=== PATIENT | male | born 1980 | race Caucasian/White ===

== ENCOUNTER 2020-02-24 10:12 | Emergency (ER) | payer SELFPAY ==
[2020-02-24 10:16] VITALS: BP 112/76; PULSE 100; TEMP 98.7; BMI 27.3
--- NOTE | 2020-02-24 11:05 | PDOC ---
History of Present Illness - General Stated Complaint: INJURY Time Seen by Provider: 02/24/20 10:40 History Source: Patient Exam Limitations: No Limitations - History of Present Illness Initial Comments: 02/24/20 10:50 HISTORY OF PRESENT ILLNESS: 39-year-old male denies medical history presents emergency department for evaluation of laceration to the left index finger which occurred while at work today. 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 Patient is right-hand dominant. Patient reports this happens to him frequently given his profession and had a tetanus shot approximately 1 year ago for similar injury. No recent travel or sick contacts. PAST MEDICAL HISTORY: Denies past medical history SURGICAL HISTORY: Denies ALLERGIES: Peanuts REVIEW OF SYSTEMS General/Constitutional: Denies fever or chills. Denies weakness, weight change. HEENT: Denies change in vision. Denies ear pain or discharge. Denies sore throat. Cardiovascular: Denies chest pain or shortness of breath. Respiratory: Denies cough, wheezing, or hemoptysis. Gastrointestinal: Denies nausea, vomiting, diarrhea or constipation. Denies rectal bleeding. Genitourinary: Denies dysuria, frequency, or change in urination. Musculoskeletal: Denies joint or muscle swelling or pain. Denies neck or back pain. Skin and breasts: See HPI Neurologic: Denies headache, vertigo, loss of consciousness, or loss of sensation. Psychiatric: Denies depression or anxiety. Endocrine: Denies increased thirst. Denies abnormal weight change. Hematologic/Lymphatic: Denies anemia, easy bleeding, or history of blood clots. Allergic/Immunologic: Denies hives or skin allergy. Denies latex allergy. PHYSICAL EXAM General Appearance: Well-appearing, appropriately dressed. No apparent distress, no intoxication. Musculoskeletal/Extremities: Normal inspection. FROM of all extremities, normal capillary refill. Pelvis Stable. No CVA tenderness. No tenderness to extre mities, pedal edema, swelling, erythema or deformity. Neurovascularly intact. Integumentary: Approximate 2 cm flap laceration present to the medial volar aspect of the left index finger over the distal phalanx. Hemostasis achieved prior to arrival. Past History - Medical History Allergies/Adverse Reactions: Allergies Allergy/AdvReac Type Severity Reaction Status Date / Time peanut Allergy Severe Verified 08/07/20 10:17 Home Medications: Ambulatory Orders Bupropion HCl [Wellbutrin Sr] 300 mg PO DAILY 02/24/20 Ibuprofen [Motrin -] 600 mg PO TID #21 tablet 02/24/20 Ibuprofen [Motrin -] 800 mg PO PRN 02/24/20 Quetiapine Fumarate "Xr" [Seroquel Xr -] 150 mg PO DAILY 02/24/20 - Psycho-Social/Smoking History Smoking History: Current every day smoker Have you smoked in the past 12 months: Yes Number of Cigarettes Smoked Daily: 6 Information on smoking cessation initiated: Yes - Substance Abuse Hx (Audit-C & DAST Scrn) How often the patient has a drink containing alcohol: Never Score: In Men: 4 or > Positive; In Women: 3 or > Positive: 0 Screen Result (Pos requires Nsg. Audit-10AR): Negative In the last yr the pt used illegal drug/Rx for NonMed reason: No Score: Yes response is considered Positive: 0 Screen Result (Positive result requires Nsg. DAST-10): Negative *Physical Exam - Vital Signs Last Vital Signs Temp Pulse Resp BP Pulse Ox 98.7 F 100 H 20 112/76 96 02/24/20 10:12 02/24/20 10:12 02/24/20 10:12 02/24/20 10:12 02/24/20 10:12 Procedures - Consent Consent obtained: Verbal, From Patient - Laceration/Wound Repair Left Volar Finger 2nd digit Wound Length: to 2.5 cm Wound Explored: clean Wound's Depth, Shape: superficial, flap Irrigated w/ Saline: Yes Betadine Prep: Yes Anesthesia: 2% Lidocaine Amount of Anesthetic (ccs): 4 Wound Debrided: minimal Wound Repaired With: Sutures Suture Size/Type: 5:0, nylon Number of Sutures: 5 Layer Closure: No Sterile Dressing Applied: Yes Splint Applied: No Sling Applied: No Progress: 02/24/20 11:06 Patient tolerated well Medical Decision Making - Medical Decision Making 02/24/20 10:51 A/P: 39-year-old male with laceration to left index finger sustained immediately prior to arrival Approximate 2 cm flap laceration present over the distal phalanx of the left index finger. Finger extends from the medial aspect over the volar aspect of the left index finger. Nailbed involvement is not noted. Neurovascularly intact. Laceration repair-see procedure note for details Discharge home Discharge - Discharge Information Problems reviewed: Yes Clinical Impression/Diagnosis: Finger laceration Qualifiers: Encounter type: initial encounter Finger: index finger Damage to nail status: without damage Foreign body presence: without foreign body Laterality: left Qualified Code(s): S61.211A - Laceration without foreign body of left index finger without damage to nail, initial encounter Condition: Stable Disposition: HOME - Admission No - Additional Discharge Information Prescriptions: Ibuprofen [Motrin -] 600 mg PO TID #21 tablet - Follow up/Referral Referrals: Adriana Amato MD [Primary Care Provider] - - Patient Discharge Instructions Additional Instructions: Keep wound clean and dry Avoid strenuous activity/exercise to create a hot or sweaty environment until sutures are removed Reapply bacitracin ointment 2 times a day until sutures are removed Return to emergency Department or private physician in 7-10 days for suture removal May use Tylenol or Motrin for pain relief Return immediately to emergency department for redness, swelling, pain, or signs of infection - Post Discharge Activity
== END 2020-02-24 11:10 | disposition home or self-care (01) ==
LOC: JER 10:12
PROC: 0HQGXZZ Repair Left Hand Skin, External Approach (ICD-10-PCS; principal; 2020-02-24)
DX: S61.211A Laceration without foreign body of left index finger without damage to nail, initial encounter (principal)
CPT/HCPCS: 99283-25

== ENCOUNTER 2020-03-06 18:01 | Emergency (ER) | payer OTHER ==
[2020-03-06] MEDS ORDERED: IBUPROFEN 600 MG TABLET (FP) PO ONE ×2 (18:19→18:26)
--- NOTE | 2020-03-06 18:19 | PDOC ---
Rapid Medical Evaluation Time Seen by Provider: 03/06/20 18:16 Medical Evaluation: Allergies Allergy/AdvReac Type Severity Reaction Status Date / Time peanut Allergy Severe Verified 03/06/20 18:16 03/06/20 18:17 I have performed a brief in-person evaluation of this patient. CC: toothache x "years"; suture removal PE: suture line well healed. No palpable dental abscess. Orders: motrin Patient to proceed to ED for further evaluation. Discharge Disposition - Diagnosis Visit for suture removal, Tooth ache - Referrals - Patient Instructions - Post Discharge Activity
[2020-03-06 18:27] VITALS: BP 151/98; PULSE 91; TEMP 98.4; BMI 27.3
--- NOTE | 2020-03-06 18:38 | PDOC ---
History of Present Illness - General Chief Complaint: Toothache Stated Complaint: FACIAL PAIN/ SUTURE REMOVAL Time Seen by Provider: 03/06/20 18:16 - History of Present Illness Initial Comments: 03/06/20 18:35 39-year-old male presents for suture removal left index finger sutures placed 11 days ago no sequelae Patient also has a toothache right upper molar in the rear he has a loose tooth. Past History - Medical History Allergies/Adverse Reactions: Allergies Allergy/AdvReac Type Severity Reaction Status Date / Time peanut Allergy Severe Verified 03/06/20 18:16 Home Medications: Ambulatory Orders Bupropion HCl [Wellbutrin Sr] 300 mg PO DAILY 02/24/20 Ibuprofen [Motrin -] 600 mg PO TID #21 tablet 02/24/20 Ibuprofen [Motrin -] 800 mg PO PRN 02/24/20 Quetiapine Fumarate "Xr" [Seroquel Xr -] 150 mg PO DAILY 02/24/20 Acetaminophen [Tylenol -] 500 mg PO Q6H #100 tablet 03/06/20 Amoxicillin - [Amoxicillin 500mg Capsule -] 500 mg PO TID #21 capsule 03/06/20 Ibuprofen [Motrin -] 600 mg PO TID #30 tablet 03/06/20 COPD: No Kidney Stones: Yes Psychiatric Problems: Yes (DEPRESSION, ANXIETY, BIPOLAR) Other medical history: BACK PAIN, - Immunization History Immunization Up to Date: Yes - Psycho-Social/Smoking History Smoking History: Current every day smoker Have you smoked in the past 12 months: Yes Number of Cigarettes Smoked Daily: 6 Information on smoking cessation initiated: No - Substance Abuse Hx (Audit-C & DAST Scrn) How often the patient has a drink containing alcohol: Never Score: In Men: 4 or > Positive; In Women: 3 or > Positive: 0 Screen Result (Pos requires Nsg. Audit-10AR): Negative In the last yr the pt used illegal drug/Rx for NonMed reason: No Score: Yes response is considered Positive: 0 Screen Result (Positive result requires Nsg. DAST-10): Negative Review of Systems - Review of Systems Constitutional: No: Fever *Physical Exam - Vital Signs Last Vital Signs Temp Pulse Resp BP Pulse Ox 98.4 F 91 H 20 151/98 100 03/06/20 18:16 03/06/20 18:16 03/06/20 18:16 03/06/20 18:16 03/06/20 18:16 - Physical Exam 03/06/20 18:35 GENERAL: The patient is awake, alert, and fully oriented, in no acute distress. HEAD: Normal with no signs of trauma. EYES: sclera anicteric, conjunctiva clear. ENT: Ears normal tympanic membranes normal oropharynx clear uvula midline ABDOMEN: Soft, nontender, normoactive bowel sounds. No guarding, no rebound. No masses. EXTREMITIES: Normal range of motion, no edema. No clubbing or cyanosis. No cords, erythema, or tenderness. Left index finger wound clean dry and intact healing well sutures and placed NEUROLOGICAL: Cranial nerves II through XII grossly intact. PSYCH: Normal mood, normal affect. SKIN: Warm, Dry, normal turgor, no rashes or lesions noted. 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 Pain medication given for toothache and loose tooth as well as antibiotics. I have reviewed the pathophysiology with the patient. They are in agreement with the treatment plan all questions were answered to their satisfaction. Understanding for follow-up without fail was also conveyed to the patient. Again they are in agreement. Discharge - Discharge Information Problems reviewed: Yes Clinical Impression/Diagnosis: Visit for suture removal, Tooth ache Condition: Stable Disposition: HOME - Admission No - Additional Discharge Information Prescriptions: Amoxicillin - [Amoxicillin 500mg Capsule -] 500 mg PO TID #21 capsule Ibuprofen [Motrin -] 600 mg PO TID #30 tablet Acetaminophen [Tylenol -] 500 mg PO Q6H #100 tablet - Follow up/Referral Referrals: Elvis Farrell [Primary Care Provider] - [facility]] - Patient Discharge Instructions Additional Instructions: Please leave the area clean and dry for the next 48 hours. After 48 hours you may gently wash the area with soap and water and pat it dry and leave it open to air. Do not apply any ointment such as bacitracin or Neosporin. Without fail please follow-up with your primary care physician in 2 to 3 days for a wound check. Return to the emergency room for further issues. Please take the antibiotics as directed as well as the pain medication. Please take the Motrin with food and discontinue the medication should it bother your stomach. Return to the emergency room for worsening symptoms and without fail follow-up with urgent care dental in 1 to 2 days for further evaluation and treatment options. - Post Discharge Activity
== END 2020-03-06 18:41 | disposition home or self-care (01) ==
LOC: JERFT 18:01 → JER 18:01 → JERFT 18:41
DX: K08.89 Other specified disorders of teeth and supporting structures (principal); Z48.02 Encounter for removal of sutures
CPT/HCPCS: 99283-25

== ENCOUNTER 2024-11-27 06:06 | Emergency (ER) | payer OTHER ==
[2024-11-27] MEDS ORDERED: morphine SULFATE 4 MG/ML VIAL ONE (06:12)
[2024-11-27] MEDS: morphine SULFATE 4 MG/ML VIAL IVPUSH ONE ×2 (06:15→07:24)
[2024-11-27 06:17] VITALS: RESP 26; BMI 24.3
[2024-11-27] MEDS ORDERED: NITROGLYCERIN SUBLINGUAL 1/150 0.4 MG TAB ONE (06:21)
[2024-11-27] MEDS: NITROGLYCERIN SUBLINGUAL 1/200 0.3 MG BTL SL ONE (06:22)
[2024-11-27] MEDS: LACTATED RINGERS SOLUTION 1000 ML INFUS.BAG IV ONE (06:24)
[2024-11-27] MEDS: NITROGLYCERIN SUBLINGUAL 1/150 0.4 MG TAB SL ONE (06:31)
[2024-11-27] MEDS ORDERED: ONDANSETRON 4 MG/2 ML VIAL ONE (06:37)
[2024-11-27 06:43] LABS: ABSOLUTE IMMATURE GRANULOCYTES 0.02 x10^3/uL (0.0-0.031); BASOPHILS # 0.11 x10^3/uL (0.01-0.08); EOSINOPHIL % 3.7 % (0.8-7.0); EOSINOPHILS # 0.26 x10^3/uL (0.04-0.54); HEMATOCRIT 45.9 % (40.1-51.0); HEMOGLOBIN 15.1 g/dL (13.7-17.5); INR 0.86 (0.83-1.09); MCHC 32.9 g/dl (32.3-36.5); MEAN CELL VOLUME 84.1 fl (79.0-92.2); MEAN PLT VOLUME 9.6 fl (9.4-12.4); MONOCYTE # 0.73 x10^3/uL (0.30-0.82); MONOCYTE % 10.5 % (5.3-12.2); PLATELET COUNT 280 x10^3/uL (163-337); PROTHROMBIN TIME (PATIENT) 9.5 SEC (9.7-13.0)
[2024-11-27] MEDS: ONDANSETRON 4 MG/2 ML VIAL IVPUSH ONE (06:43)
[2024-11-27] MEDS ORDERED: ACETAMINOPHEN INJECTION 100 ML ONE (06:44)
[2024-11-27 06:45] LABS: ACTIVATED PTT 28.7 SECONDS (25.2-36.5)
[2024-11-27] MEDS: ACETAMINOPHEN 1000 MG/100 ML BAG IVPB ONE (06:49)
[2024-11-27 06:50] LABS: POTASSIUM 4.1 mmol/L (3.5-5.1)
[2024-11-27 06:52] LABS: CALCIUM 9.3 mg/dL (8.5-10.1)
[2024-11-27 06:53] LABS: ALBUMIN 4.1 g/dl (3.4-5.0); BLOOD UREA NITROGEN 10.2 mg/dL (7-18)
[2024-11-27 06:56] LABS: CREATININE 1.1 mg/dL (0.55-1.3)
[2024-11-27 06:57] LABS: BILIRUBIN,TOTAL 0.3 mg/dL (0.2-1); TOT PROT 7.7 g/dl (6.4-8.2)
[2024-11-27] MEDS ORDERED: MORPHINE SULFATE 2 MG/ML SYRINGE ONE (07:19)
[2024-11-27 07:44] LABS: METHADONE, UR NEGATIVE (NEGATIVE); URINE AMPHETAMINES NEGATIVE (NEGATIVE); URINE BARBITURATES NEGATIVE (NEGATIVE); URINE BENZODIAZEPINES NEGATIVE (NEGATIVE)
[2024-11-27 07:45] LABS: COCAINE, UR POSITIVE (NEGATIVE); OPIATES, URI POSITIVE (NEGATIVE); PHENCYCLIDINE,URINE NEGATIVE (NEGATIVE)
[2024-11-27] MEDS ORDERED: KETOROLAC TROMETHAMINE 15 MG/ML VIAL ONE (07:55)
[2024-11-27] MEDS ORDERED: FAMOTIDINE 20 MG/50 ML IVPB 20 MG/50 ML MG IVPB ONE (07:58)
[2024-11-27 08:04] LABS: URINE APPEARANCE CLEAR; URINE BILIRUBIN NEGATIVE (NEGATIVE); URINE COLOR YELLOW; URINE GLUCOSE (UA) NEGATIVE (NEGATIVE); URINE KETONE NEGATIVE (NEGATIVE); URINE LEUK ESTERASE NEGATIVE (NEGATIVE); URINE NITRITE NEGATIVE (NEGATIVE); URINE PROTEIN NEGATIVE (NEGATIVE); URINE UROBILINOGEN 0.2 mg/dL (0.2-1.0)
[2024-11-27] MEDS: KETOROLAC TROMETHAMINE 15 MG/ML VIAL IVPUSH ONE (08:08)
[2024-11-27] MEDS: FAMOTIDINE 20 MG/50 ML IVPB 20 MG/50 ML MG IVPB ONE (08:08)
[2024-11-27 09:45] VITALS: BP 163/104; PULSE 77
[2024-11-27] MEDS ORDERED: ENOXAPARIN NA (PORCINE) 40 MG/0.4 ML DISP.SYRIN SQ SCH (10:00)
== END 2024-11-27 09:48 | disposition home or self-care (01) ==
LOC: JER 06:06
PROC: 3E033GC Introduction of Other Therapeutic Substance into Peripheral Vein, Percutaneous Approach (ICD-10-PCS; principal; 2024-11-27)
PROC: 3E033GC Introduction of Other Therapeutic Substance into Peripheral Vein, Percutaneous Approach (ICD-10-PCS; 2024-11-27)
PROC: 3E033NZ Introduction of Analgesics, Hypnotics, Sedatives into Peripheral Vein, Percutaneous Approach (ICD-10-PCS; 2024-11-27)
PROC: 3E0333Z Introduction of Anti-inflammatory into Peripheral Vein, Percutaneous Approach (ICD-10-PCS; 2024-11-27)
PROC: 3E033NZ Introduction of Analgesics, Hypnotics, Sedatives into Peripheral Vein, Percutaneous Approach (ICD-10-PCS; 2024-11-27)
PROC: 3E033NZ Introduction of Analgesics, Hypnotics, Sedatives into Peripheral Vein, Percutaneous Approach (ICD-10-PCS; 2024-11-27)
DX: R10.84 Generalized abdominal pain (principal); R11.2 Nausea with vomiting, unspecified; R03.0 Elevated blood-pressure reading, without diagnosis of hypertension
CPT/HCPCS: 36415; 71045-TC-FY; 74177-TC; 80053; 80307; 81003; 83605; 83690; 84484; 85025; 85610; 85730; 87086; 93005; 93010; 99285-25; J0131; Q9967